=== PATIENT | female | born 1950 | race African-American/Black ===

== ENCOUNTER 2019-01-27 10:40 | Emergency (ER) | payer MEDICARE, MEDICAID ==
--- OUTSIDE RECORDS SUMMARY | 2019-01-27 10:49 | XMS REPORT | Continuity of Care Document ---
:1950 External Reference #:[id number] Author Name Choco Haddad M.D. Address [address] [place] [address] Care Team Providers Name Role Phone Doris Alvarez M.D. Primary Care Physician Unavailable Payers Date Identification Numbers Payment Provider Subscriber Policy Number: [id number] Medicare - NGS Medina Mauricio Thompson PayID: [id number] [address] [place] [address] Policy Number: [id number] Medicaid Medina Mauricio Thompson PayID: [id number] [address] [place] [address] Advance Directives Description No Information Available Problems Date Description Provider Status Onset: Asthma Active Onset: Gastroesophageal reflux disease Active Onset: 10/21/2006 Type 2 diabetes mellitus Active Onset: Heart murmur Active Onset: Essential hypertension Active Onset: Arthritis Active Onset: Primary fibromyalgia syndrome Active Onset: Depressive disorder Active Onset: Hypercholesterolemia Active Onset: 06/24/2015 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 Active mellitus Onset: 06/24/2015 After-cataract with vision obscured Vanessa Newsome O.D. Active Onset: 06/24/2015 Tear film insufficiency Vanessa Newsome O.D. Active Onset: 06/24/2015 Pseudophakia Vanessa Newsome O.D. Active Onset: 09/23/2015 Malignant glaucoma Vanessa Neswome O.D. Active Onset: 09/23/2015 Type 2 diabetes mellitus with mild Vanessa Newsome O.D. Active nonproliferative diabetic retinopathy without macular edema Onset: 06/28/2016 Acute angle-closure glaucoma Vanessa Newsome O.D. Active Onset: 09/19/2016 Type 2 diabetes mellitus with mild Choco Haddad M.D. Active nonproliferative diabetic retinopathy without macular edema, bilateral Family History Date Family Member(s) Observation Comments Father Unknown Mother Unknown Social History Type Date Description Comments Sex Unknown Marital Status Legal Status: Work Status Disabled ETOH Use Denies alcohol use Tobacco Use Start: Unknown Patient has never smoked Recreational Drug Use Denies Drug Use Smoking Status Reviewed: 01/01/19 Patient has never smoked Allergies, Adverse Reactions, Alerts Date Description Reaction Status Severity Comments 10/03/2015 NKDA Active 06/24/2015 Shellfish Active Medications Medication Date Status Form Strength Qnty SIG Indications Ordering Provider Latanoprost 07/08 Active Solution 0.005% 7.500 1 drop H40.831 ml Right eyes Zablocki, every M.D. night Azopt 12/02 Active Suspension 1% 45ml 1 drop right eye Zablocki, twice a M.D. day Alphagan P 06/28 Active Solution 0.1% 5unit Instill 1 s Drop Into Zablocki, Right Eye M.D. Twice A Day Omeprazole Active Capsules DR 20mg Take One Unknown /0000 Capsule By Mouth Every Day Ventolin HFA Active Aerosol 108(90Bas Take 2 Unknown /0000 e) Puffs By mcg/Act Inhalation Every Four Hours as Needed (Wheezing) . Meclizine HCL Active Tablets 25mg Take 1 Unknown /0000 Tablet By Mouth 3 Times A Day as Needed For Dizziness Or Motion Metformin HCL Active Tablets 1000mg Take 1 Unknown /0000 Tablet By Mouth Twice A Day Losartan Active Tablets 100-25mg Take 1 Unknown Potassium/Hydroc /0000 Tablet By hlorothiazide Mouth Daily. Aleve Active Capsules 220mg as needed Unknown /0000 Nifedipine ER 00 Active Tablets ER 60mg Galyanova, Osmotic Release /0000 24HR Doris M.D. Pravastatin Active Tablets 40mg Galyanova, Sodium /0000 Doris M.D. Fluticasone Active Suspension 50mcg/Act [place] 2 Unknown Propionate /0000 Sprays In Nose Daily. Flovent HFA 00 Active Aerosol 110mcg/Ac Galyanova, /0000 t Doris M.D. Cyclopentolate 11/27 Hx Solution 2% 10ml use one Choco HCL /2017 [facility] 03/03 day to the right eye Atropine Sulfate 11/26 Hx Solution 1% 5ml use one H40.831 Choco /2017 drop to [facility], - the Right M.D. 11/27 eye once a day Atropine Sulfate 06/29 Hx Solution 1% 15ml use one H40.831 Choco drop to [facility], - the right M.D. 04/10 eye Twice /2016 A Day Cyclopentolate 06/29 Hx Solution 2% 10ml use one H40.831 Choco HCL /2015 drop, [facility], - three M.D. 01/27 times a day to the right eye Atropine Sulfate 06/28 Hx Solution 1% 5ml (On Hold) H40.831 Vanessa Valerio /2015 (Pt is out [place], - of med) 1 O.D. 09/18 drop right eye three times a day Prednisolone 06/28 Hx Suspension 1% 10ml 1 drop H40.211 Choco Acetate right eye [facility], - suzy - fri M.D. 09/18 - sat sun then discontinu e Timolol Maleate 02/08 Hx Solution 0.5% 30ml One drop H40.11x3 Audie Valerio in the [facility], - right eye M.D. 09/24 twice per day Azopt 02/08 Hx Suspension 1% 45ml one drop H40.11x3 Choco in the [facility], - right eye M.D. 11/25 twice per day Cyclogyl 09/27 Hx Solution 1% 5ml One drop H40.831 Audie Valerio /2014 in the [facility], - right eye M.D. 02/07 times per day Atropine Sulfate 09/23 Hx Solution 1% 5ml 1 drop H40.831 Vanessa Valerio /2014 right eye [place], - three O.D. 09/27 times a day Azopt 09/23 Hx Suspension 1% 10ml 1 drop H40.831 Vanessa Valerio /2014 right eye [place], - twice a O.D. Timolol Maleate 09/23 Hx GFS 0.5% 5ml 1 drop H40.831 Vanessa Valerio Ophthalmic Gel /2014 right eye [place], Forming - at night O.D. 02/07 Artificial Tears 09/22 Hx Solution 0.1-0.3% 1 drop 2-3 Vanessa Valerio /2014 times [place], - daily O.D. 10/02 Artificial Tears 09/22 Hx Ointment Vanessa Valerio /2014 [place], - O.D. 10/02 Warm Compresses 09/22 Hx every day Vanessa Valerio /2014 [place], - O.D. 11/25 Gabapentin Hx Capsules 300mg Take One Unknown /0000 Capsule By - Mouth 02/07 Twice A Day Cyclobenzaprine Hx Tablets 10mg Take 1 Unknown HCL /0000 Tablet By - Mouth 3 02/07 Times Day as Needed Nasonex Hx Suspension 50mcg/Act Use 2 Unknown /0000 Inhalation - s In Each 11/25 Nostril /2017 Every Day Losartan Hx Tablets 50mg Unknown Potassium /0000 - 01/28 Timolol Maleate Hx Solution 0.5% 5unit 1 drop Choco /0000 s right eye Zasheilai, - twice M.D. 07/[address] 20mg Kim, /0000 Part Doris - M.D. 11/25 Trazodone HCL 00 Hx Tablets 50mg Take 1 Unknown /0000 Tablet By - Mouth AT 11/25 Bedtime Azopt Hx Suspension 1% Instill Unknown /0000 One Drop - In The 11/25 Right Eye /2017 Twice Per Day Prednisolone Hx Suspension 1% 15uni 1 drop Choco Acetate /0000 ts right eye Zablocki, - twice M.D. 12/03 Immunizations Description No Information Available Vital Signs Date Vital Result Comment 05/01/2017 2:31pm BP Systolic 143 mmHg BP Diastolic 79 mmHg Heart Rate 74 /min Respiratory Rate 16 /min 06/28/2016 12:12pm BP Systolic 105 mmHg BP Diastolic 52 mmHg Heart Rate 64 /min Respiratory Rate 14 /min Results Description No Information Available Procedures Date Code Description Status 08/18/2018 88969 Est Patient Intermediate Exam Completed 07/08/2018 88690 Est Patient Comprehensive Exam Completed 03/04/2018 73687 Est Patient Intermediate Exam Completed 05/01/2017 55930 Remove Secondary Cataract, Laser (Yag) Completed 04/10/2017 15012 Scanning Computerized Ophthalmic Diagnostic Imag Posterior Completed Seg On 03/21/2017 74395 Patient No Show For Appt Completed 01/28/2017 97608 Est Patient Intermediate Exam Completed 12/19/2016 12679 Visual Field Exam Extended Completed 12/19/2016 80544 Est Patient Comprehensive Exam Completed 09/19/2016 36175 Visual Field Exam Extended Completed 06/28/2016 42124 Est Patient Intermediate Exam Completed 06/28/2016 04375 Iridotomy/Iredectomy By Laser Surgery Completed 02/09/2016 49136 Est Patient Intermediate Exam Completed 10/26/2015 59474 Est Patient Intermediate Exam Completed 10/26/2015 22792 Visual Field Exam Extended Completed 10/26/2015 60777 Scanning Computerized Ophthalmic Diagnostic Imag Posterior Completed Seg On 09/23/2015 36603 Est Patient Comprehensive Exam Completed 06/24/2015 20687 Determination Of Refractive State Completed 06/24/2015 77688 Est Patient Comprehensive Exam Completed 05/12/2014 87176 Extracapsular Cataract Extraction W/Intraocular Lens Completed 05/05/2014 54039 Extracapsular Cataract Extraction W/Intraocular Lens Completed 04/30/2014 37895 Scanning Computerized Opthalmic Diagnostic Posterior Seg Completed Retina 04/30/2014 39603 Ophthalmic Biometry Completed 04/30/2014 45459 Ophthalmic Biometry Completed 04/14/2014 55587 Est Patient Comprehensive Exam Completed 04/13/2013 04526 Gonioscopy Completed 04/13/2013 60013 Est Patient Comprehensive Exam Completed 04/11/2012 76171 Est Patient Comprehensive Exam Completed 04/09/2011 46810 Est Patient Comprehensive Exam Completed 10/09/2010 99208 Est Patient Comprehensive Exam Completed 01/02/2010 98165 Est Patient Comprehensive Exam Completed Encounters Type Date Location Provider Dx Diagnosis Office Visit 12/03/2017 Choco Longo, H40.831 Aqueous 9:15a , [place] misdirection, right eye Office Visit 11/26/2017 Choco Longo, H40.831 Aqueous 9:45a [place] COLON M.D. misdirection, right eye Office Visit 04/10/2017 Choco Longo, H40.831 Aqueous 9:45a , [place] misdirection, right eye E11.3293 Type 2 diab with mild nonp rtnop without macular edema, bi Office Visit 09/19/2016 9:45a Audie Wilhelm H40.831 Aqueous MD Anabel, [place] Haddad M.D. misdirection, right eye E11.3293 Type 2 diab with mild nonp rtnop without macular edema, bi Office Visit 08/08/2016 8:45a Audie Wilhelm H40.831 Shari Little MD, [place] Haddad M.D. misdirection, right eye Office Visit 10/03/2015 9:20a Audie Valerio H40.831 Aqueous MD [place]abel, [place] Newsome O.D. misdirection, right eye Z96.1 Presence of intraocular lens Office Visit 09/26/2015 9:15a Audie Valerio H40.831 Shari Little MD, [place] Little M.D. misdirection, right eye Z96.1 Presence of intraocular lens Office Visit 09/24/2015 9:45a Audie May H40.831 Shari Little MD, [place] Owen O.D. misdirection, right eye Z96.1 Presence of intraocular lens Office Visit 04/30/2014 9:30a Audie Longo 366.16 Senile Nuclear , [place] Little M.D. Sclerosis / Cataract 250.50 Diabetes W/ Ophthalmic Manifestations Type II Controlled 362.01 Background Diabetic Retinopathy Office Visit 02/18/2008 3:15p Audie Kelly, 373.2 Alyssa Little MD, [place] Office Visit 12/29/2007 2:10p Audie Valerio 368.9 Visual Disturbances MD [place], pc Terri Newsome Unspec Plan of Treatment 01/01/2019 - Choco Haddad M.D.H40.831 Aqueous misdirection, right eyeComments:Smoking can increase the risk of developing or worsening any eye related disease, as well as affect your overall health. If you are a smoker, we strongly recommend that you quit.If you are not a smoker, we strongly recommend that you do not start. CONTINUE TO USE THE GLAUCOMA DROPSI WILL TRY A LASERTREATMENT TO TRY TO LOWER THE PRESSURE TO THE RIGHT EYEFollow up: SCHEDULE YAG PI OD ONLY
[2019-01-27 10:55] VITALS: BP 130/61
--- NOTE | 2019-01-27 12:25 | UC ---
Dental HPI - HPI Summary HPI Summary: 3 WEEKS AGO PATIENT ACCIDENTALLY STRUCK HER LEFT UPPER CENTRAL INCISOR WITH A HEAVY METAL SPOON. TOOTH BECAME WIGGLY AND SHE HAS HAD INCREASING PAIN SINCE THEN. NOW HAS A BUBBLE ABOVE HER TOOTH. NO FEVER, NO NAUSEA. DOES NOT HAVE A DENTIST. - History of Current Complaint Chief Complaint: UCDentalProblem Stated Complaint: SORE IN MOUTH Time Seen by Provider: 01/27/19 12:09 Hx Obtained From: Patient Hx Last Menstrual Period: Not applicable. Onset/Duration: Gradual Onset, Lasting Weeks, Still Present Severity: Moderate Pain Intensity: 5 Pain Scale Used: 0-10 Numeric Aggravating Factor(s): Heat, Cold, Chewing Alleviating Factor(s): Nothing - Allergies/Home Medications Allergies/Adverse Reactions: Allergies Allergy/AdvReac Type Severity Reaction Status Date / Time shellfish derived Allergy Hives Verified 01/27/19 10:50 PMH/Surg Hx/FS Hx/Imm Hx Endocrine History: Diabetes Cardiovascular History: Hypertension Respiratory History: Asthma Other History Of: Negative For: HIV, Hepatitis B, Hepatitis C, Anticoagulant Therapy - Surgical History Surgical History: Yes Surgery Procedure, Year, and Place: GALLBLADDER REMOVED - 01/2013. RIGHT AND LEFT TOTAL KNEE REPLACEMENT. LEFT BREAST LUMPECTOMY-20 YEARS AGO. [id number] - Family History Known Family History: Positive: Cardiac Disease, Hypertension, Diabetes - Social History Alcohol Use: Rare Substance Use Type: None Smoking Status (MU): Never Smoked Tobacco Have You Smoked in the Last Year: No Review of Systems All Other Systems Reviewed And Are Negative: Yes Constitutional: Positive: Negative ENT: Positive: Dental Pain Respiratory: Positive: Negative Cardiovascular: Positive: Negative Gastrointestinal: Positive: Negative Physical Exam Triage Information Reviewed: Yes Appearance: Well-Appearing, No Pain Distress, Well-Nourished Vital Signs: Initial Vital Signs Temp 97.6 F 01/27/19 10:51 Pulse 71 01/27/19 10:51 Resp 18 01/27/19 10:51 BP 130/61 01/27/19 10:51 Pulse Ox 97 01/27/19 10:51 Vital Signs Reviewed: Yes Eyes: Positive: Conjunctiva Clear ENT: Positive: Hearing grossly normal Dental: Positive: Percussion Tenderness @ - #9 LOOSE AND PAINFUL, Abscess @ - ABOVE #9. Negative: Bleeding Neck: Positive: Supple Respiratory: Positive: Normal breath sounds, No respiratory distress Cardiovascular: Positive: Pulses Normal Abdomen Description: Positive: Soft Musculoskeletal: Positive: No Edema Neurological: Positive: Alert Psychological: Positive: Age Appropriate Behavior Skin: Negative: Rashes Dental Complaint Course/Dx - Course Course Of Treatment: PATIENT WITH ABSCESS ABOVE TOOTH #9. OFFERED DRAINAGE BUT PATIENT DECLINES. WILL COVER WITH ANTIBIOTICS, ANTISEPTIC MOUTH RINSE AND PAIN MEDICATION. CONTACT INFORMATION FOR LOW-COST/NO-COST DENTISTS PROVIDED. PATIENT ENCOURAGED TO CALL TODAY FOR AN APPOINTMENT FOR FOLLOW-UP. - Differential Dx/Diagnosis Provider Diagnosis: Dental abscess Discharge - Sign-Out/Discharge Documenting (check all that apply): Patient Departure All imaging exams completed and their final reports reviewed: No Studies - Discharge Plan Condition: Stable Disposition: HOME Prescriptions: Amoxicillin/Clavulanate TAB* [Augmentin TAB 875*] 875 mg PO BID #20 tab Chlorhexidine MW 0.12% 473ML* [Peridex Mouth Wash 0.12%*] 15 ml SWISH SPIT BID # 1 bottle HYDROcodone/ACETAMIN 5-325 MG* [Pooler 5-325 TAB*] 1 tab PO Q6H PRN #20 tab MDD 4 PRN Reason: Pain Patient Education Materials: Dental Abscess (ED) Referrals: Doris Avlarez MD [Primary Care Provider] - If Needed Additional Instructions: TAKE THE ANTIBIOTICS FOR THE FULL COURSE. RINSE YOUR MOUTH WITH WATER AFTER EATING OR DRINKING ANYTHING. ANTISEPTIC MOUTH RINSE TWICE DAILY. OTC MEDS NEEDED FOR DISCOMFORT. HYDROCODONE FOR BREAKTHROUGH. FOLLOW-UP WITH A DENTIST SAHIL. IBUPROFEN MAX DOSE: 600MG (3 TABS) EVERY 6 HRS OR 800MG (4 TABS) EVERY 8 HRS OR NAPROXEN MAX DOSE: 440MG (2 TABS) EVERY 12 HRS TYLENOL MAX DOSE: 1000MG (2 EXTRA STRENGTH TABS) EVERY 8 HRS OR 650MG (2 REGULAR TABS) EVERY 6 HRS - Billing Disposition and Condition Condition: STABLE Disposition: Home
== END 2019-01-27 12:31 | disposition home or self-care (01) ==
LOC: UCEAST 10:40
DX: K04.7 Periapical abscess without sinus (principal); W22.8XXA Striking against or struck by other objects, initial encounter; Y93.89 Activity, other specified; Y92.9 Unspecified place or not applicable
CPT/HCPCS: 99212; G0463